=== PATIENT | male | born 1995 | race Two or more races ===

== ENCOUNTER 2025-06-05 13:07 | Emergency (ER) | payer MEDICAID ==
[~2025-06-05] VITALS: Ht 180.3 cm; Wt 113.6 kg
[2025-06-05 13:11] VITALS: BP 123/70; PULSE 68; RESP 18; TEMP 98.2; O2SAT 99
[2025-06-05] MEDS ORDERED: PENI500T2 PO (14:23)
[2025-06-05] MEDS ORDERED: IBUP-1554 PO (14:23)
[2025-06-05] MEDS ORDERED: ACET-2080 PO (14:23)
== END 2025-06-05 14:36 | disposition home or self-care (01) ==
LOC: EMS 13:07
DX: K04.7 Periapical abscess without sinus (principal); K08.89 Other specified disorders of teeth and supporting structures; Z79.899 Other long term (current) drug therapy
CPT/HCPCS: 99283; Z7502